=== PATIENT | female | born 1975 | race Caucasian/White ===

== ENCOUNTER 2018-05-15 04:48 | Emergency (ER) | payer OTHER ==
[~2018-05-15] VITALS: Ht 157.5 cm; Wt 54.4 kg
[~2018-05-15 04:48] MED LIST: ANASPAZ0.125 MG PO; BENTYL10 MG/ML IM; CEFADROXIL500 MG PO; DURAGESIC25 MCG/HR TD; FIORICET TABLET1 TAB PO; NORFLEX100 MG PO; PEPCID20 MG; PREVACID30 MG; PROTONIX40 MG PO; REGLAN5 MG/5 ML; REGLAN5 MG/5 ML PO; ROBINUL FORTE2 MG; TAGAMET800 MG; TAGAMET800 MG PO; TRAMADOL HCL50 MG PO; ULTRACET; ZANTAC300 MG
== END 2018-05-15 10:16 | disposition home or self-care (01) ==
LOC: ER 04:48
DX: R10.31 Right lower quadrant pain (principal)

== ENCOUNTER 2018-11-26 19:48 | Emergency (ER) | payer OTHER ==
[~2018-11-26] VITALS: Ht 157.5 cm; Wt 48.1 kg
== END 2018-11-26 23:46 | disposition home or self-care (01) ==
LOC: ER 19:48
DX: N83.291 Other ovarian cyst, right side (principal); R10.11 Right upper quadrant pain; R10.31 Right lower quadrant pain

== ENCOUNTER 2019-01-08 23:12 | Emergency (ER) | payer OTHER ==
[~2019-01-08] VITALS: Ht 154.9 cm; Wt 49.4 kg
[2019-01-10] MEDS ORDERED: ZANTAC150 M3 (13:18)
[2019-01-10] MEDS ORDERED: INDERAL LA80 MG (13:19)
== END 2019-01-09 08:09 | disposition home or self-care (01) ==
LOC: ER 23:12
DX: N83.291 Other ovarian cyst, right side (principal); R10.2 Pelvic and perineal pain

== ENCOUNTER 2019-01-10 13:06 | Emergency (ER) | payer OTHER ==
[~2019-01-10] VITALS: Ht 154.9 cm; Wt 49.4 kg
[2019-01-10] MEDS ORDERED: ZANTAC150 M3 (13:18)
[2019-01-10] MEDS ORDERED: INDERAL LA80 MG (13:19)
== END 2019-01-10 18:31 | disposition home or self-care (01) ==
LOC: ER 13:06
DX: R10.2 Pelvic and perineal pain (principal)

== ENCOUNTER 2019-01-27 02:10 | Emergency (ER) | payer OTHER ==
[~2019-01-27] VITALS: Ht 154.9 cm; Wt 49.9 kg
[~2019-01-27 02:10] MED LIST changes: +INDERAL LA80 MG; +ZANTAC150 M3
== END 2019-01-27 07:42 | disposition home or self-care (01) ==
LOC: ER 02:10
DX: N20.0 Calculus of kidney (principal); R31.29 Other microscopic hematuria